=== PATIENT | female | born 1950 | race Caucasian/White ===

== ENCOUNTER 2017-11-26 14:21 | Emergency (ER) | payer MEDICARE ==
[2017-11-26] MEDS ORDERED: SODIUM CHLORIDE 0.9% 1000ML 1,000 ML IV ONE (14:53)
[2017-11-26] MEDS ORDERED: ONDANSETRON HCL 4 MG/2 ML VIAL ONE (14:53)
[2017-11-26 15:17] LABS: RAPID GROUP A STREP NEGATIVE (NEGATIVE)
[2017-11-26 15:24] LABS: BASOPHILS % (AUTO) 0.3 % (0.0-5.0); EOSINOPHILS % (AUTO) 0.3 % (0.0-8.0); HEMATOCRIT 37.6 % (36-48); LYMPHOCYTES % (AUTO) 24.6 % (21.0-51.0); MEAN CORPUSCULAR HGB CONC 35.1 g/dL (32.0-36.0); MEAN CORPUSCULAR VOLUME 91.1 fL (79-99); MONOCYTES % (AUTO) 8.7 % (3.0-13.0); NEUTROPHILS % (AUTO) 66.1 % (40.0-77.0); PLATELET COUNT (AUTO) 328 K/uL (130-400); RED BLOOD CELL COUNT(AUTO) 4.13 MIL/uL (4.00-5.50); RED CELL DISTRIBUTION WIDTH 12.7 % (11.0-15.5); WHITE BLOOD COUNT (AUTO) 11.4 K/uL (4.8-10.8)
[2017-11-26] MEDS ORDERED: IPRATROPIUM/ALBUTEROL SULFATE 3 ML SOLUTION IH ONE (15:29)
[2017-11-26 15:36] LABS: POTASSIUM 3.2 mmol/L (3.5-5.1)
[2017-11-26 16:30] LABS: APPEARANCE,URINE Clear (CLEAR); BILIRUBIN,URINE Negative (NEGATIVE); COLOR,URINE Yellow (YELLOW); GLUCOSE, URINE (UA) Negative (NEGATIVE); KETONES,URINE 15 mg/dL (NEGATIVE); LEUKOCYTE ESTERASE ,URINE Negative (NEGATIVE); NITRATE,URINE Negative (NEGATIVE); OCCULT BLOOD,URINE Negative (NEGATIVE); PROTEIN,URINE POS 1+ (NEGATIVE); UROBILINOGEN,URINE 0.2 mg/dL (0.2-1.0)
[2017-11-26 16:41] LABS: BACTERIA,URINE Rare /HPF (None Seen); COARSE GRANULAR CASTS,URINE 0-2 /LPF (None Seen); RBC,URINE 0-1 /HPF (0-1); SQUAMOUS EPITHELIAL CELL,UR Few /LPF (0-2)
== END 2017-11-26 18:14 | disposition home or self-care (01) ==
LOC: EDH 14:21
DX: K52.89 Other specified noninfective gastroenteritis and colitis (principal); R05 Cough; E78.5 Hyperlipidemia, unspecified; Z88.8 Allergy status to other drugs, medicaments and biological substances; Z90.49 Acquired absence of other specified parts of digestive tract; Z98.890 Other specified postprocedural states
CPT/HCPCS: 36415; 71046; 80048; 81001; 85025; 87804 ×2; 87880; 94640; 96361; 96374; 99285; J2405; J7030

== ENCOUNTER 2017-12-05 13:02 | Inpatient (IN) | payer MEDICARE ==
[~2017-12-05] VITALS: Ht 154.9 cm; Wt 44.9 kg
[2017-12-05] MEDS ORDERED: DEXTROSE 5 %-0.45 % NACL 1,000 ML IV ONE (13:52)
[2017-12-05 13:56] LABS: BASOPHILS % (AUTO) 0.2 % (0.0-5.0); HEMATOCRIT 37.7 % (36-48); LYMPHOCYTES % (AUTO) 10.3 % (21.0-51.0); MEAN CORPUSCULAR HEMOGLOBIN 31.5 pg (27.0-33.0); MEAN CORPUSCULAR HGB CONC 34.5 g/dL (32.0-36.0); MEAN CORPUSCULAR VOLUME 91.3 fL (79-99); MONOCYTES % (AUTO) 8.7 % (3.0-13.0); NEUTROPHILS % (AUTO) 80.8 % (40.0-77.0); PLATELET COUNT (AUTO) 382 K/uL (130-400); RED BLOOD CELL COUNT(AUTO) 4.13 MIL/uL (4.00-5.50); RED CELL DISTRIBUTION WIDTH 13.4 % (11.0-15.5); WHITE BLOOD COUNT (AUTO) 20.6 K/uL (4.8-10.8)
[2017-12-05] MEDS ORDERED: ONDANSETRON HCL 4 MG/2 ML VIAL ONE (14:00)
[2017-12-05 14:08] LABS: APPEARANCE,URINE Clear (CLEAR); BILIRUBIN,URINE Negative (NEGATIVE); COLOR,URINE Yellow (YELLOW); GLUCOSE, URINE (UA) Negative (NEGATIVE); KETONES,URINE 15 mg/dL (NEGATIVE); LEUKOCYTE ESTERASE ,URINE Negative (NEGATIVE); NITRATE,URINE Negative (NEGATIVE); OCCULT BLOOD,URINE Negative (NEGATIVE); PH,URINE 5.5 (5.0-8.0); PROTEIN,URINE POS 1+ (NEGATIVE)
[2017-12-05 14:13] LABS: BACTERIA,URINE Rare /HPF (None Seen); RBC,URINE 0-1 /HPF (0-1); SQUAMOUS EPITHELIAL CELL,UR Few /LPF (0-2); WBC,URINE 0-1 /HPF (0-1)
[2017-12-05 14:59] LABS: ERYTHROCYTE SEDIMENTATION RATE 55 MM/HR (0-15)
[2017-12-05] MEDS ORDERED: DIATR MEGLU/DIATRIZOATE SODIUM 30 ML BOTTLE PO ONE (15:03)
[2017-12-05 15:50] LABS: BILIRUBIN,TOTAL 0.7 mg/dL (0.2-1.0); TOTAL PROTEIN, SERUM 6.7 g/dL (6.0-8.3)
[2017-12-05] MEDS ORDERED: POTASSIUM CHLORIDE 20 MEQ ERTAB PO ONE ×2 (16:18→21:03)
[2017-12-05] MEDS ORDERED: POTASSIUM CHLORIDE 20MEQ/100ML 100 ML IV ONE (16:22)
[2017-12-05] MEDS ORDERED: LIDOCAINE HCL-MPF 1% 2ML VIAL ONE (16:24)
[2017-12-05] MEDS ORDERED: POTASSIUM BICARB/CIT AC 25 MEQ TABLET.EFF ONE (16:29)
[2017-12-05] MEDS ORDERED: MAGNESIUM 2GM PREMIX 50ML 50 ML IV ONE (20:52)
[2017-12-05] MEDS ORDERED: METRONIDAZOLE 500MG/100ML BAG 100 ML ONE (20:54)
[2017-12-05] MEDS ORDERED: ZOSYN 3.375GM+NS 50ML 50 ML IV ONE (20:54)
[2017-12-05 22:19] LABS: OCCULT BLOOD STOOL SINGLE ONLY NEGATIVE (NEGATIVE)
[2017-12-06] VITALS (7 sets, daily range): BP systolic 90–115; BP diastolic 51–67
[2017-12-06] MEDS ORDERED: POTASSIUM CHLORIDE 20MEQ/100ML 100 ML IV ONE (00:22)
[2017-12-06] MEDS ORDERED: DEXTROSE 5 %-0.45 % NACL 1,000 ML IV ONE ×2 (00:49→02:01)
[2017-12-06] MEDS ORDERED: FISH1CAP49 PO (01:44)
[2017-12-06] MEDS ORDERED: CHOL500050 PO (01:44)
[2017-12-06] MEDS ORDERED: GEMF600T PO (01:44)
[2017-12-06 04:57] LABS: HEMATOCRIT 32.3 % (36-48); MEAN CORPUSCULAR HEMOGLOBIN 31.8 pg (27.0-33.0); MEAN CORPUSCULAR VOLUME 91.1 fL (79-99); PLATELET COUNT (AUTO) 335 K/uL (130-400); RED BLOOD CELL COUNT(AUTO) 3.54 MIL/uL (4.00-5.50); RED CELL DISTRIBUTION WIDTH 13.2 % (11.0-15.5)
[2017-12-06 05:10] LABS: CREATININE 1.5 mg/dL (0.5-1.5)
[2017-12-06 05:18] LABS: POTASSIUM 2.1 mmol/L (3.5-5.1)
[2017-12-06] MEDS: MAGNESIUM 2GM PREMIX 50ML 50 ML IV NR (05:59)
[2017-12-06] MEDS ORDERED: ACETAMINOPHEN 325 MG TAB PO PRN (06:00)
[2017-12-06] MEDS ORDERED: POTASSIUM CHLORIDE 10% ELIXIR 20 MEQ/15 ML UDCUP PO PRN ×2 (06:00→06:45)
[2017-12-06] MEDS: DEXTROSE 5 %-0.45 % NACL 1,000 ML IV SCH ×2 (06:00→13:48)
[2017-12-06] MEDS ORDERED: METRONIDAZOLE 250MG/50ML 50 ML IV SCH (06:00)
[2017-12-06] MEDS ORDERED: ZOSYN 3.375GM+NS 50ML 50 ML IV SCH ×2 (06:00→09:00)
[2017-12-06] MEDS ORDERED: ONDANSETRON HCL 4 MG/2 ML VIAL IVP PRN (06:00)
[2017-12-06] MEDS ORDERED: PHARMACY COMMUNICATION MISC SCH (06:00)
[2017-12-06] MEDS ORDERED: HYDROMORPHONE 4MG/ML 1ML VIAL IVP PRN (06:45)
[2017-12-06] MEDS ORDERED: LIDOCAINE HCL-MPF 1% 2ML VIAL IVP PRN (06:45)
[2017-12-06] MEDS ORDERED: POTASSIUM CHLORIDE 20MEQ/100ML 100 ML IV PRN (06:45)
[2017-12-06] MEDS ORDERED: POTASSIUM CHLORIDE 20 MEQ ERTAB PO PRN (06:45)
[2017-12-06] MEDS ORDERED: HYDROMORPHONE 1 MG/1 ML AMP ONE ×4 (07:38→22:00)
[2017-12-06] MEDS: POTASSIUM CHLORIDE 20MEQ/100ML 100 ML IV PRN ×3 (07:46→23:47)
[2017-12-06] MEDS: LIDOCAINE HCL-MPF 1% 2ML VIAL IJ PRN ×3 (07:46→23:47)
[2017-12-06] MEDS: POTASSIUM CHLORIDE 20 MEQ ERTAB PO PRN ×2 (07:50→13:36)
[2017-12-06] MEDS: METRONIDAZOLE 250MG/50ML 50 ML IV SCH ×3 (09:50→22:06)
[2017-12-06] MEDS: PIPERACILLIN SODIUM/TAZOBACTAM 3.375 GM VIAL IV SCH ×3 (09:50→22:05)
[2017-12-06] MEDS ORDERED: COMPOUND IV MISC 1 EACH IVSOLN MISC PRN (12:00)
[2017-12-07] MEDS: LIDOCAINE HCL-MPF 1% 2ML VIAL IJ PRN ×2 (01:22→08:40)
[2017-12-07] MEDS: POTASSIUM CHLORIDE 20MEQ/100ML 100 ML IV PRN ×3 (01:22→13:19)
[2017-12-07] MEDS ORDERED: HYDROMORPHONE 1 MG/1 ML AMP ONE ×2 (01:32→05:01)
[2017-12-07] MEDS: DEXTROSE 5 %-0.45 % NACL 1,000 ML IV SCH ×3 (01:34→13:22)
[2017-12-07 04:00] VITALS: BP 94/58
[2017-12-07] MEDS: PIPERACILLIN SODIUM/TAZOBACTAM 3.375 GM VIAL IV SCH ×2 (05:11→08:37)
[2017-12-07] MEDS: METRONIDAZOLE 250MG/50ML 50 ML IV SCH ×3 (05:11→15:42)
[2017-12-07 05:48] LABS: HEMATOCRIT 31.4 % (36-48); MEAN CORPUSCULAR HEMOGLOBIN 32.1 pg (27.0-33.0); MEAN CORPUSCULAR VOLUME 91.7 fL (79-99); PLATELET COUNT (AUTO) 306 K/uL (130-400); RED BLOOD CELL COUNT(AUTO) 3.43 MIL/uL (4.00-5.50); RED CELL DISTRIBUTION WIDTH 13.5 % (11.0-15.5); WHITE BLOOD COUNT (AUTO) 13.6 K/uL (4.8-10.8)
[2017-12-07 06:06] LABS: CREATININE 1.4 mg/dL (0.5-1.5)
[2017-12-07 06:13] LABS: POTASSIUM 2.9 mmol/L (3.5-5.1)
[2017-12-07] MEDS: MAGNESIUM 2GM PREMIX 50ML 50 ML IV NR (06:15)
[2017-12-07 08:00] VITALS: BP_SYST 106; BP_SYST 96; BP_DIAS 60; BP_DIAS 66
[2017-12-07] MEDS ORDERED: HYDROMORPHONE HCL 2 MG/ML VIAL ONE ×2 (08:17→11:28)
[2017-12-07] MEDS ORDERED: MEROPENEM 1 GM VIAL IVP SCH (10:15)
[2017-12-07 11:50] VITALS: BP 91/56
[2017-12-07] MEDS: POTASSIUM CHLORIDE 20 MEQ ERTAB PO PRN ×2 (13:19→15:36)
[2017-12-07 16:00] VITALS: BP 92/57
[2017-12-07] MEDS ORDERED: PANTOPRAZOLE 40 MG/VIAL IVP SCH (16:00)
[2017-12-07] MEDS ORDERED: PANTOPRAZOLE SODIUM 40 MG TABLET.DR PO ONE (16:04)
[2017-12-07] MEDS ORDERED: POTA-79 PO (18:09)
[2017-12-08] MEDS ORDERED: PANTOPRAZOLE SODIUM 40 MG TABLET.DR PO SCH (09:00)
== END 2017-12-07 18:50 | disposition home or self-care (01) | DRG 388 ==
LOC: EDH 13:02 → EDHIP 13:03 → 3DH 23:10
PROVIDERS: ADMIT Internal Medicine; ATTEND Internal Medicine
DX: K56.609 Unspecified intestinal obstruction, unspecified as to partial versus complete obstruction (principal); N17.0 Acute kidney failure with tubular necrosis; J44.9 Chronic obstructive pulmonary disease, unspecified; K56.0 Paralytic ileus; E86.0 Dehydration; K52.9 Noninfective gastroenteritis and colitis, unspecified; E87.6 Hypokalemia; I10 Essential (primary) hypertension; M19.90 Unspecified osteoarthritis, unspecified site; Z87.891 Personal history of nicotine dependence; Z88.8 Allergy status to other drugs, medicaments and biological substances
CPT/HCPCS: 36415; 74176; 80048; 80053; 81001; 82270; 83735; 84132; 85025; 85027; 85651; 87046; 87177; 87205; 87324; A4218; C9113; J1170; J2405; J2543; J3475; J3480; J3490; J7042; Q9963

== ENCOUNTER 2021-10-27 07:27 | Day surgery (SDC) | payer MEDICARE ==
[2021-10-27] VITALS (7 sets, daily range): BP systolic 97–116; BP diastolic 50–68
[~2021-10-27] VITALS: Ht 152.4 cm; Wt 45.1 kg
[~2021-10-27 07:27] MED LIST: 0.9%NACL 1000ML 1,000 ML IV ONE; CHOL500050 PO; FISH1CAP49 PO; GEMF600T PO; LOSA25TA41 PO; POTA-79 PO
[2021-10-27] MEDS ORDERED: VICODIN PO (08:45)
[2021-10-27] MEDS ORDERED: PROPOFOL 10 MG/ML 20ML VIAL IV ONE ×2 (10:21→10:40)
[2021-10-27] MEDS ORDERED: EPHEDRINE SULFATE 50 MG/ML AMPULE ONE (10:31)
[2021-10-27] MEDS ORDERED: PHENYLEPHRINE HCL 10 MG/ML 1ML VIAL IV ONE (10:45)
== END 2021-10-27 11:35 | disposition home or self-care (01) ==
LOC: DAH 07:27
PROVIDERS: ATTEND Internal Medicine
DX: Z12.11 Encounter for screening for malignant neoplasm of colon (principal); Z20.822 Contact with and (suspected) exposure to COVID-19; R93.2 Abnormal findings on diagnostic imaging of liver and biliary tract; D50.9 Iron deficiency anemia, unspecified; K55.20 Angiodysplasia of colon without hemorrhage; K83.8 Other specified diseases of biliary tract; K29.70 Gastritis, unspecified, without bleeding; I10 Essential (primary) hypertension; F17.210 Nicotine dependence, cigarettes, uncomplicated; E78.5 Hyperlipidemia, unspecified; I49.1 Atrial premature depolarization; Z90.49 Acquired absence of other specified parts of digestive tract; Z98.890 Other specified postprocedural states
CPT/HCPCS: 36415; 43239; 43259; 45382; 83516; 86038; 86255; 87635; 88305; 93005; A4215 ×2; A4221; A4222; A4223; A4606; A4620; A4663; C9803; J2370; J2704 ×2; J3490; J7030; 86215; 86235

== ENCOUNTER 2024-03-05 14:57 | Emergency (ER) | payer MEDICARE, OTHER ==
[~2024-03-05] VITALS: Ht 152.4 cm; Wt 45.4 kg
[~2024-03-05 14:57] MED LIST changes: -0.9%NACL 1000ML 1,000 ML IV ONE; -FISH1CAP49 PO; +POTA-364 PO; -POTA-79 PO; +VICODIN PO
[2024-03-05 15:32] LABS: BASOPHILS # (AUTO) 0.03 K/uL (0.00-0.20); BASOPHILS % (AUTO) 0.3 % (0.0-5.0); EOSINOPHILS # (AUTO) 0.02 K/uL (0.00-0.70); EOSINOPHILS % (AUTO) 0.2 % (0.0-8.0); HEMATOCRIT 22.6 % (36-48); IMMATURE GRANULOCYTE ABSOLUTE 0.05 K/uL (0-1); LYMPHOCYTES % (AUTO) 19.4 % (21.0-51.0); MEAN CORPUSCULAR HEMOGLOBIN 34.4 pg (27.0-33.0); MEAN CORPUSCULAR HGB CONC 34.5 g/dL (32.0-36.0); MEAN CORPUSCULAR VOLUME 99.6 fL (79-99); MONOCYTES # (AUTO) 0.4 K/uL (0.1-1.0); MONOCYTES % (AUTO) 4.2 % (3.0-13.0); NEUTROPHILS # (AUTO) 7.9 K/uL (1.8-7.7); NEUTROPHILS % (AUTO) 75.4 % (40.0-77.0); PLATELET COUNT (AUTO) 317 K/uL (130-400); RED BLOOD CELL COUNT(AUTO) 2.27 MIL/uL (4.00-5.50); RED CELL DISTRIBUTION WIDTH 18.8 % (11.0-15.5); WHITE BLOOD COUNT (AUTO) 10.5 K/uL (4.8-10.8)
[2024-03-05 15:39] LABS: ALBUMIN 4.4 g/dL (3.5-5.0); BILIRUBIN,TOTAL 0.3 mg/dL (0.2-1.0); CREATININE 4.5 mg/dL (0.5-1.0); TOTAL PROTEIN, SERUM 7.8 g/dL (6.0-8.3)
[2024-03-05] MEDS: PROCHLORPERAZINE 10MG/2ML INJ IV ONE (17:06)
[2024-03-05] MEDS: ONDANSETRON 4MG INJ IVP ONE (17:06)
[2024-03-05] MEDS: 0.9%NACL 1000ML 2,000 ML IV ONE (17:06)
[2024-03-05] MEDS: ACETAMINOPHEN 325 MG TAB PO ONE (18:19)
[2024-03-05] MEDS: 0.9%NACL 1000ML 1,000 ML IV ONE (20:12)
[2024-03-05 20:53] LABS: APPEARANCE,URINE CLOUDY (CLEAR); BILIRUBIN,URINE NEGATIVE (NEGATIVE); COLOR,URINE LIGHT-YELLOW (YELLOW); GLUCOSE, URINE (UA) NEGATIVE (NEGATIVE); KETONES,URINE NEGATIVE (NEGATIVE); LEUKOCYTE ESTERASE ,URINE 500 Leu/uL (NEGATIVE); NITRATE,URINE NEGATIVE (NEGATIVE); OCCULT BLOOD,URINE NEGATIVE (NEGATIVE); PROTEIN,URINE 30 mg/dL (NEGATIVE); UROBILINOGEN,URINE 0.2 mg/dL (0.2-1.0)
[2024-03-05 20:54] LABS: ADD UA MICROSCOPIC YES
[2024-03-05 21:02] LABS: BACTERIA,URINE RARE /HPF (None Seen); MUCUS,URINE RARE LPF (None Seen); SQUAMOUS EPITHELIAL CELL,UR RARE /HPF (0-2); UNCLASSIFIED CRYSTAL 2 /HPF (None Seen); WBC CLUMP FEW /HPF (0-1); WBC,URINE 26-50 /HPF (0-1); YEAST,URINE BUDDING RARE /HPF (None Seen)
[2024-03-06] MEDS: 0.9%NACL 1000ML 2,000 ML IV ONE (07:19)
[2024-03-06] MEDS: CEFTRIAXONE 1G VIAL IVPB ONE (07:19)
[2024-03-06 07:49] VITALS: BP 114/64; PULSE 102; RESP 16; O2SAT 100
== END 2024-03-06 09:17 | disposition short-term general hospital (02) ==
LOC: EDH 14:57
DX: N17.9 Acute kidney failure, unspecified (principal); E78.00 Pure hypercholesterolemia, unspecified; Z79.899 Other long term (current) drug therapy; Z98.890 Other specified postprocedural states; Z88.8 Allergy status to other drugs, medicaments and biological substances
CPT/HCPCS: 99285; 96361; 74176; 96375; 84484; 80053; 85025; 87077; 87088; 87186; 81001; 36415; 96365; J7030 ×2; J0780; J2405; J0696